=== PATIENT | male | born 1990 | race Caucasian/White ===

== ENCOUNTER 2022-01-25 09:39 | Emergency (ER) | payer SELFPAY ==
[2022-01-25 10:35] LABS: ESTIMATED GFR 116 mL/min (>60)
[2022-01-25] MEDS ORDERED: Clindamycin Phosphate 900 MG in Sodium Chloride 0.9% 100 ML IV ONE (10:50)
[2022-01-25] MEDS ORDERED: Ampicillin/Sulbactam Na 3 GM in Sodium Chloride 0.9% 100 ML IV ONE (10:50)
[2022-01-25 11:08] LABS: CORONAVIRUS COVID-19 NAA NEGATIVE (NEGATIVE)
== END 2022-01-25 12:23 ==
LOC: JP.ED 09:39
DX: E11.52 Type 2 diabetes mellitus with diabetic peripheral angiopathy with gangrene (principal); Z72.0 Tobacco use; Z20.822 Contact with and (suspected) exposure to COVID-19
CPT/HCPCS: 0241U; 36415; 73630; 80053; 83605; 84145; 85025; 96365; 96367; 99284; 99285; J0295; J3490

== ENCOUNTER 2022-08-21 09:24 | Emergency (ER) | payer MEDICAID ==
[2022-08-21] MEDS ORDERED: Ertapenem 1 GM in Sodium Chloride 0.9% 50 ML IV ONE (10:00)
[2022-08-21] MEDS ORDERED: Insulin Regular, Human 100 Units/ML 3 ML Vial IVPUSH ONE (10:39)
[2022-08-22] MEDS ORDERED: Insulin Glargine,Human Rec. Analog 100 Units/ML 3 ML Pen SUBCUT ONE (10:42)
== END 2022-08-21 11:45 | disposition home or self-care (01) ==
LOC: JP.ED 09:24
DX: L03.115 Cellulitis of right lower limb (principal); E11.65 Type 2 diabetes mellitus with hyperglycemia; E11.40 Type 2 diabetes mellitus with diabetic neuropathy, unspecified; F17.210 Nicotine dependence, cigarettes, uncomplicated; Z79.4 Long term (current) use of insulin
CPT/HCPCS: 36415; 80048; 85025; 93971-RT; 96365; 99284; 99284-25; J1335; J1815-GY

== ENCOUNTER 2022-08-22 11:12 | Inpatient (IN) | payer MEDICAID ==
[2022-08-22] MEDS ORDERED: Vancomycin 2.25 GM in Sodium Chloride 0.9% 500 ML IV ONE (12:40)
[2022-08-22 12:50] LABS: ESTIMATED GFR 74 mL/min (>60)
[2022-08-22 12:53] LABS: CORONAVIRUS COVID-19 NAA POSITIVE (NEGATIVE)
[2022-08-22] MEDS ORDERED: Ondansetron 4 MG/2 ML SDV IV PRN (14:03)
[2022-08-22] MEDS ORDERED: Magnesium Hydroxide 400 MG/5 ML Susp 30 ML Cup PO PRN (14:03)
[2022-08-22] MEDS ORDERED: oxyCODONE 5 MG Tab PO PRN (14:03)
[2022-08-22] MEDS ORDERED: Melatonin 3 MG Tab PO PRN (14:03)
[2022-08-22] MEDS ORDERED: Ondansetron 4 MG Tab.DIS PO PRN (14:03)
[2022-08-22] MEDS: Meropenem 1 GM in Sodium Chloride 0.9% 100 ML IV SCH (16:26)
[2022-08-22] MEDS: Enoxaparin 40 MG/0.4 ML Syringe SUBCUT SCH (16:26)
[2022-08-22] MEDS: Sodium Chloride 0.9% 1,000 ML IV SCH (16:26)
[2022-08-22] MEDS: Insulin Lispro 100 Unit/ML 3 ML KwikPen SUBCUT SCH ×2 (17:36→21:20)
[2022-08-22] MEDS: Insulin Glargine,Human Rec. Analog 100 Units/ML 3 ML Pen SUBCUT SCH (21:21)
[2022-08-22] MEDS: Lactobacillus Rhamnosus GG (Probiotic) Cap PO SCH (21:32)
[2022-08-23] MEDS: Meropenem 1 GM in Sodium Chloride 0.9% 100 ML IV SCH ×4 (00:06→23:44)
[2022-08-23] MEDS: Acetaminophen 325 MG Tab PO PRN ×2 (00:15→14:25)
[2022-08-23] MEDS: Sodium Chloride 0.9% 1,000 ML IV SCH ×2 (08:05→23:44)
[2022-08-23] MEDS: Lactobacillus Rhamnosus GG (Probiotic) Cap PO SCH ×2 (08:06→21:22)
[2022-08-23] MEDS: Insulin Glargine,Human Rec. Analog 100 Units/ML 3 ML Pen SUBCUT SCH ×2 (08:06→21:23)
[2022-08-23] MEDS: Insulin Lispro 100 Unit/ML 3 ML KwikPen SUBCUT SCH ×4 (08:07→21:23)
[2022-08-23] MEDS ORDERED: Potassium Chloride 20 MEQ Tab.ER PO ONE (08:30)
[2022-08-23] MEDS: Enoxaparin 40 MG/0.4 ML Syringe SUBCUT SCH (16:50)
[2022-08-24] MEDS: Insulin Lispro 100 Unit/ML 3 ML KwikPen SUBCUT SCH ×4 (08:10→22:04)
[2022-08-24] MEDS: Insulin Glargine,Human Rec. Analog 100 Units/ML 3 ML Pen SUBCUT SCH ×3 (08:11→22:05)
[2022-08-24] MEDS: Lactobacillus Rhamnosus GG (Probiotic) Cap PO SCH ×2 (08:12→22:05)
[2022-08-24] MEDS: Meropenem 1 GM in Sodium Chloride 0.9% 100 ML IV SCH ×3 (08:12→23:50)
[2022-08-24] MEDS: Vancomycin 2 GM in Sodium Chloride 0.9% 500 ML IV SCH (12:47)
[2022-08-24] MEDS: Enoxaparin 40 MG/0.4 ML Syringe SUBCUT SCH (16:38)
[2022-08-24] MEDS: Sodium Chloride 0.9% 1,000 ML IV SCH (16:42)
[2022-08-25] MEDS: Vancomycin 2 GM in Sodium Chloride 0.9% 500 ML IV SCH (01:59)
[2022-08-25] MEDS: Insulin Lispro 100 Unit/ML 3 ML KwikPen SUBCUT SCH ×4 (08:33→21:06)
[2022-08-25] MEDS: Lactobacillus Rhamnosus GG (Probiotic) Cap PO SCH ×2 (08:34→21:05)
[2022-08-25] MEDS: Insulin Glargine,Human Rec. Analog 100 Units/ML 3 ML Pen SUBCUT SCH ×2 (08:34→21:07)
[2022-08-25] MEDS: Meropenem 1 GM in Sodium Chloride 0.9% 100 ML IV SCH ×3 (08:35→23:38)
[2022-08-25] MEDS: Sodium Chloride 0.9% 1,000 ML IV SCH (08:35)
[2022-08-25] MEDS: Doxycycline 100 MG in Sodium Chloride 0.9% 100 ML IV SCH (13:40)
[2022-08-25] MEDS: Enoxaparin 40 MG/0.4 ML Syringe SUBCUT SCH (16:58)
[2022-08-26] MEDS: Doxycycline 100 MG in Sodium Chloride 0.9% 100 ML IV SCH ×2 (00:34→13:05)
[2022-08-26] MEDS: Sodium Chloride 0.9% 1,000 ML IV SCH ×2 (00:38→13:08)
[2022-08-26] MEDS: Insulin Glargine,Human Rec. Analog 100 Units/ML 3 ML Pen SUBCUT SCH ×2 (08:22→21:37)
[2022-08-26] MEDS: Insulin Lispro 100 Unit/ML 3 ML KwikPen SUBCUT SCH ×4 (08:22→21:39)
[2022-08-26] MEDS: Lactobacillus Rhamnosus GG (Probiotic) Cap PO SCH ×2 (08:23→21:40)
[2022-08-26] MEDS: Meropenem 1 GM in Sodium Chloride 0.9% 100 ML IV SCH ×3 (08:24→23:42)
[2022-08-26] MEDS: Enoxaparin 40 MG/0.4 ML Syringe SUBCUT SCH (15:06)
[2022-08-27] MEDS: Doxycycline 100 MG in Sodium Chloride 0.9% 100 ML IV SCH ×2 (00:36→12:14)
[2022-08-27] MEDS: Insulin Lispro 100 Unit/ML 3 ML KwikPen SUBCUT SCH ×4 (08:13→21:37)
[2022-08-27] MEDS: Insulin Glargine,Human Rec. Analog 100 Units/ML 3 ML Pen SUBCUT SCH ×2 (08:14→21:36)
[2022-08-27] MEDS: Lactobacillus Rhamnosus GG (Probiotic) Cap PO SCH ×2 (08:16→21:36)
[2022-08-27] MEDS: Meropenem 1 GM in Sodium Chloride 0.9% 100 ML IV SCH (08:16)
[2022-08-27] MEDS: Enoxaparin 40 MG/0.4 ML Syringe SUBCUT SCH (17:36)
[2022-08-28] MEDS: Doxycycline 100 MG in Sodium Chloride 0.9% 100 ML IV SCH (01:00)
[2022-08-28] MEDS: Insulin Lispro 100 Unit/ML 3 ML KwikPen SUBCUT SCH ×2 (08:26→13:13)
[2022-08-28] MEDS: Lactobacillus Rhamnosus GG (Probiotic) Cap PO SCH (08:28)
[2022-08-28] MEDS: Insulin Glargine,Human Rec. Analog 100 Units/ML 3 ML Pen SUBCUT SCH (08:29)
[2022-08-28] MEDS ORDERED: Doxycycline 100 MG Cap PO SCH (10:00)
== END 2022-08-28 13:12 | disposition home or self-care (01) | DRG 602 ==
LOC: JP.ED 11:12 → JP.MS 12:41
PROVIDERS: ADMIT Internal Medicine; ATTEND Internal Medicine
PROC: 8E0ZXY6 Isolation (ICD-10-PCS; principal; 2022-08-22)
DX: L03.115 Cellulitis of right lower limb (principal); U07.1 COVID-19; E11.65 Type 2 diabetes mellitus with hyperglycemia; F17.210 Nicotine dependence, cigarettes, uncomplicated; Z79.4 Long term (current) use of insulin
CPT/HCPCS: 0241U; 36415; 73630-26-RT; 73630-RT; 73700-26-RT; 73700-RT; 80048; 80053; 80202; 82947; 85025; 85027; 86140; 87040; 87070; 87077; 87186; 87205; 96365; 99222; 99232; 99238; 99284; 99284-25; A9270-GY; J1650; J1815; J1815-GY; J2185; J3370; J3490; J7030; J7040; J7050